=== PATIENT | male | born 1995 | race African-American/Black ===

== ENCOUNTER 2022-08-22 08:06 | Emergency (ER) | payer OTHER, MEDICAID ==
[~2022-08-22] VITALS: Ht 193 cm; Wt 115.0 kg
[2022-08-22] MEDS ORDERED: ACETAMINOPHEN 325MG TABLET PO ONE (09:00)
[2022-08-22 10:09] LABS: HEMATOCRIT. 42.3 % (42.0-52.0); HEMOGLOBIN. 13.6 g/dL (14.0-18.0); MEAN CORPUSCULAR HEMOGLOBIN 28.3 pg (28.0-32.0); MEAN PLATELET VOLUME 8.7 fl (7.4-10.4); PLATELET 230 x1000/uL (130-400); RED BLOOD CELL COUNT 4.81 mill/uL (4.7-6.1); RED CELL DISTRIBUTION WIDTH 14.4 % (11.6-14.6)
[2022-08-22 10:21] LABS: CHLORIDE 97 mEq/L (98-107)
[2022-08-22] MEDS ORDERED: ONDANSETRON HCL 4MG/2ML INJ IV ONE (10:30)
[2022-08-22 10:33] LABS: ETHANOL BLOOD < 10 mg/dL
[2022-08-22 10:49] LABS: ATYPICAL LYMPHOCYTES 14
[2022-08-22 10:50] LABS: PLATELET ESTIMATE NORMAL
[2022-08-22] MEDS ORDERED: FUROSEMIDE 40MG/4ML VIAL IVP ONE (11:30)
[2022-08-22] MEDS ORDERED: MORPHINE SULFATE 4 MG/ML CPJ (NOT FOR IM USE) IV ONE ×2 (11:30→12:15)
[2022-08-22] MEDS ORDERED: NITROGLYCERIN 0.4MG TABLET SL SL ONE (11:30)
[2022-08-22] MEDS ORDERED: KETOROLAC 15MG/ML VIAL IV ONE (12:00)
[2022-08-22] MEDS ORDERED: HYDROCODONE/ACETAMINOPHEN 5/325MG TABLET PO ONE (12:15)
[2022-08-22 12:24] LABS: BG BASE EXCESS 1.4 mmol/L (-2.0-2.0); BG CARBOXYHEMOGLOBIN 1.3 % (0.5-1.5); BG FRACTION INSPIRED OXYGEN 36; BG HCO3 ACT 25.3 mmol/L (22.0-26.0); BG METHEMOGLOBIN 0.5 % (0.0-1.5); BG OXYHEMOGLOBIN 96.2 % (94.0-97.0); BG PCO2 37.9 mmHg (35.0-45.0); BG PH 7.443 (7.350-7.450); BG PO2 122.6 mmHg (75.0-100.0); BG SAMPLE SITE RIGHT BRACHIAL; BG TOTAL HEMOGLOBIN 13.9 g/dL (12.0-18.0); BG VENT MODE NASAL CANNULA
[2022-08-22] MEDS ORDERED: OLANZAPINE 10 MG/VIAL IM ONE (12:45)
[2022-08-22 14:34] VITALS: BP 129/84
== END 2022-08-22 14:45 | disposition short-term general hospital (02) ==
LOC: ER 08:38 → EDBEDREQ 09:29 → CANBEDREQ 13:41 → ER 14:45
DX: R06.02 Shortness of breath (principal); R05.3 Chronic cough; R61 Generalized hyperhidrosis; I50.9 Heart failure, unspecified; Z20.822 Contact with and (suspected) exposure to COVID-19
CPT/HCPCS: 36415; 36600; 71045; 74176; 76705; 80053; 80320; 82375; 82805; 83605; 83690; 83880; 84484; 85025; 87040; 87426; 93005; 96374; 96375; 99291; C9803; J1885; J1940; J2270; J2405; G0480

== ENCOUNTER 2022-08-31 14:15 | Emergency (ER) | payer OTHER, MEDICAID ==
[~2022-08-31] VITALS: Ht 185.4 cm; Wt 109.0 kg
[2022-08-31] MEDS ORDERED: METOCLOPRAMIDE HCL 10MG/2ML VIAL IV STA (14:33)
[2022-08-31] MEDS ORDERED: SODIUM CHLORIDE 0.9% 1,000 ML IV ONE (19:15)
[2022-08-31 19:55] LABS: BASOPHILS % 0.8 % (0.0-2.0); HEMATOCRIT. 42.1 % (42.0-52.0); HEMOGLOBIN. 13.7 g/dL (14.0-18.0); LYMPHOCYTES % 44.8 % (20.0-50.0); MEAN CORPUSCULAR HEMOGLOBIN 28.9 pg (28.0-32.0); MEAN CORPUSCULAR VOLUME 89.1 fL (80.0-94.0); MEAN PLATELET VOLUME 8.9 fl (7.4-10.4); MONOCYTES % 14.3 % (2.0-8.0); NEUTROPHILS % 39.1 % (40.0-76.0); PLATELET 218 x1000/uL (130-400); RED BLOOD CELL COUNT 4.73 mill/uL (4.7-6.1); RED CELL DISTRIBUTION WIDTH 14.9 % (11.6-14.6)
[2022-08-31 20:00] VITALS: BP 96/68
[2022-08-31 20:05] LABS: CHLORIDE 103 mEq/L (98-107)
[2022-08-31 20:15] LABS: INR 1.2; PROTHROMBIN TIME 12.5 sec (9.6-11.0)
[2022-08-31] MEDS ORDERED: METOCLOPRAMIDE HCL 10MG/2ML VIAL IV NR (20:30)
== END 2022-08-31 22:12 | disposition home or self-care (01) ==
LOC: ER 14:15
DX: R11.15 Cyclical vomiting syndrome unrelated to migraine (principal); R10.13 Epigastric pain; R00.0 Tachycardia, unspecified; I11.0 Hypertensive heart disease with heart failure; I50.9 Heart failure, unspecified
CPT/HCPCS: 36415; 74176; 80053; 83690; 85025; 85610; 96361; 96374; 99284; J2765; J7030